=== PATIENT | female | born 2000 | race Two or more races ===

== ENCOUNTER 2025-01-04 08:11 | Outpatient (CLI) | payer MEDICAID ==
[2025-01-04 08:33] LABS: Hematocrit 37.4 % (36.0-46.0); Hemoglobin 12.7 g/dL (12.2-16.2); Mean Corpuscular Hemoglobin 29.7 pg (28.0-32.0); Mean Corpuscular Volume 87.6 fL (80.0-100.0); Nucleated Red Blood Cells % 0.0 %
== END 2025-01-04 17:00 | disposition home or self-care (01) ==
LOC: LAB 08:11
PROVIDERS: ATTEND Obstetrics & Gynecology
DX: Z34.80 Encounter for supervision of other normal pregnancy, unspecified trimester (principal); Z3A.00 Weeks of gestation of pregnancy not specified
CPT/HCPCS: 36415; 82951; 83036; 85025

== ENCOUNTER 2025-02-01 06:34 | Observation (INO) | payer MEDICAID ==
[~2025-02-01] VITALS: Ht 157.5 cm; Wt 90.7 kg
[2025-02-01] MEDS ORDERED: METF-370 PO (08:45)
[2025-02-01] MEDS ORDERED: PREN-96 PO (08:46)
--- NOTE | 2025-02-01 08:55 | DVH ---
BIOPHYSICAL PROFILE HISTORY: GDMA2 Comparison Study: None TECHNIQUE: Multiple real-time grayscale sonographic images through the gravid uterus of the fetus wi th duplex Doppler color flow and M-mode spectral analysis FINDINGS: BIOPHYSICAL PROFILE: breathing score: 2 movement score: 2 tone score: 2 Quantitative JEANA score: 2 (JEANA: 19 Cm.) Total score: 8 The cervix is not visualized Single live fetus in cephalic presentation. heart rate 135 beats per minute. Posterior/fundal placenta without previa or abruption IMPRESSION: Biophysical profile score: 8
--- NOTE | 2025-02-01 10:50 | DVHDS2 ---
Physician Discharge Progress N Final Diagnosis: testing for GDM, A2 Operations or Procedures: Operations or Procedures 24yo IUP@33.4wks VSS NST reactive FKC/PTL precautions reviewed Dr. Martin consulted, agrees with POC. Other Interventions Other Interventions [address] [address] Ph: [phone] DIAGNOSTIC IMAGING Diagnostic Imaging Report : [id number] Signed PATIENT: CARINA LLANOSACCT: [id number] UNIT: [id number] : 2000 LOC: [facility] ROOM / BED: TRIAGE1 / A AGE / SEX: 24 / F ADM STATUS: ADM IN SERVICE 4 ORDERING PHYSICIAN: MARCUS FULLER CNM PROCEDURE(s): BPP - BIOPHYSICAL PROFILE REASON: GDMA2 ORDER NUMBER(s): [id number], ACCESSION NUMBER(s): [id number] BIOPHYSICAL PROFILE HISTORY: GDMA2 Comparison Study: None TECHNIQUE: Multiple real-time grayscale sonographic images through the gravid uterus of the fetus with duplex Doppler color flow and M-mode spectral analysis FINDINGS: BIOPHYSICAL PROFILE: breathing score: 2 movement score: 2 tone score: 2 Quantitative JEANA score: 2 (JEANA: 19 Cm.) Total score: 8 The cervix is not visualized Single live fetus in cephalic presentation. heart rate 135 beats per minute. Posterior/fundal placenta without previa or abruption IMPRESSION: Biophysical profile score: 8 ATED BY: SATNAM HACKETT MD DICTATED DATE/TIME: 02/01/25852 SIGNED BY: SATNAM HACKETT MD SIGNED DATE/TIME: 02/01/25852 CC: Condition on Discharge: Stable Disposition: Home Discharge Instructions: Diet: Consistent carbohydrate Activity: No Restrictions, As Tolerated Follow Up/Referral: [facility] Friday[facility] at 8:00 am Medications: see med list Follow Up Care: Specialist: f/u twice weekly Discharge Statement: "Patient was advised to return to the ER or call 911 if any headaches, dizziness, shortness of breath, chest pain, abdominal pain, bleeding, fevers, or worsening of medical condition. Patient was counseled about treatment plan, medications, possible side effects, patientverbalized understanding. All questions were answered to the best of my ability. This discharge took greater then 30 minutes in planning, reviewing documen tation, counseling the patient, and discussing with other team members." Visit Coding OBGYN Date of Service: Feb 01, 2025 Billing Provider: MARCUS FULLER CNM TABLET TESTER Common Visit Codes: 62495-[id number] OBS CARE (HIGH) TABLET TESTER Procedure Codes: 98701-76- NON-STRESS TEST MARCUS FULLER CNM Feb 01, 2025 10:50
== END 2025-02-01 09:32 | disposition home or self-care (01) ==
LOC: LDRP 08:10 → UNDOADMOB 08:10 → LDRP 08:16 → UNDODISOB 09:32
PROVIDERS: ADMIT Obstetrics & Gynecology; ATTEND Obstetrics & Gynecology
DX: O24.419 Gestational diabetes mellitus in pregnancy, unspecified control (principal); Z3A.33 33 weeks gestation of pregnancy; Z98.890 Other specified postprocedural states; Z79.899 Other long term (current) drug therapy
CPT/HCPCS: 59025; 76819; 81002; 82948; 82962; 94760; G0378

== ENCOUNTER 2025-02-04 06:19 | Observation (INO) | payer MEDICAID ==
[~2025-02-04 06:19] MED LIST: METF-370 PO; PREN-96 PO
--- NOTE | 2025-02-04 08:57 | DVH ---
CLINICAL HISTORY: Gestational diabetes. COMPARISON: US BIOPHYSICAL PROFILE on DOS: 02/01/25 TECHNIQUE: biophysical profile was performed. Transabdominal sonographic images of the fetus we re obtained. FINDINGS: The fetus is in cephalic position. heart rate measures 140 BPM. Amniotic fluid index measures 16.4 cm. The placenta is posterior/fundal in position. BPP profile is an overall score of 8/8, with 2/2 points for breathing, with at least one episode of breathing over a 30 second duration during a 30 minute observation, 2/2 points for m ovements, with 3 or more discrete body or limb movements, 2/2 points for tone, with one or more episodes of extremity extension with return to flexion, or opening and closing of hand, and 2/ 2 points for amniotic fluid, with at least 1 pocket of amniotic fluid that measures 2 cm in 2 perpend icular planes. IMPRESSION: BPP score of 8/8.
--- NOTE | 2025-02-04 11:03 | DVHDS2 ---
Physician Discharge Progress N Final Diagnosis: GDM Operations or Procedures: Operations or Procedures NST/BPP/JEANA Commentary: Commentary PATIENT: CARINA LLANOSACCT: [id number] UNIT: [id number] : 2000 LOC: [facility] ROOM / BED: TRIAGE2 / A AGE / SEX: 24 / F ADM STATUS: ADM IN SERVICE 1 ORDERING PHYSICIAN: JORDEN SEARS DO PROCEDURE(s): BPP - BIOPHYSICAL PROFILE REASON: GDMA2 ORDER NUMBER(s): [id number], ACCESSION NUMBER(s): [id number] CLINICAL HISTORY: Gestational diabetes. COMPARISON: US BIOPHYSICAL PROFILE on DOS: 02/01/25 TECHNIQUE: biophysical profile was performed. Transabdominal sonographic images of the fetus were obtained. FINDINGS: The fetus is in cephalic position. heart rate measures 140 BPM. Amniotic fluid index measures 16.4 cm. The placenta is posterior/fundal in position. BPP profile is an overall score of 8/8, with 2/2 points for kamran thing, with at least one episode of breathing over a 30 second duration during a 30 minute observation, 2/2 points for movements, with 3 or more discrete body or limb movements, 2/2 points for tone, with one or more episodes of extremity extension with return to flexion, or opening and closing of hand, and 2/2 points for amniotic fluid, with at least 1 pocket of amniotic fluid that measures 2 cm in 2 perpendicular planes. IMPRESSION: BPP score of 8/8. ATED BY: MATEUS ARTHUR DO DICTATED DATE/TIME: 02/04/25854 Condition on Discharge: Stable Disposition: Home Discharge Instructions: Diet: Consistent carbohydrate Activity: No Restrictions, As Tolerated Follow Up/Referral: as scheduled. Medications: NA Follow Up Care: Discharge Statement: "Patient was advised to return to the ER or call 911 if any headaches, dizziness, shortness of breath, chest pain, abdominal pain, bleeding, fevers, or worsening of medical condition. Patient was counseled about treatment plan, medications, possible side effects, patientverbalized understanding. All questions were answered to the best of my ability. This discharge took greater then 30 minutes in planning, reviewing documentation, counseling the patient, and discussing with other team members." Visit Coding OBGYN Date of Service: Feb 04, 2025 Billing Provider: JORDEN SEARS DO EARLY CHILDHOOD TEACHER Common Visit Codes: [id number] INP/OBS CARE(MOD) EARLY CHILDHOOD TEACHER Procedure Codes: 72777-93- NON-STRESS TEST JORDEN SEARS DO Feb 04, 2025 11:03
== END 2025-02-04 09:32 | disposition home or self-care (01) ==
LOC: LDRP 08:15
PROVIDERS: ADMIT Obstetrics & Gynecology; ATTEND Obstetrics & Gynecology
DX: O24.419 Gestational diabetes mellitus in pregnancy, unspecified control (principal); Z3A.34 34 weeks gestation of pregnancy; Z98.890 Other specified postprocedural states
CPT/HCPCS: 59025; 76819; 81002; 82948; 82962; 94760; G0378

== ENCOUNTER 2025-02-08 11:35 | Observation (INO) | payer MEDICAID ==
--- NOTE | 2025-02-08 12:18 | DVH ---
BIOPHYSICAL PROFILE HISTORY: GDMA2 TECHNIQUE: Multiple real-time grayscale sonographic images through the gravid uterus of the fetus wi th duplex Doppler color flow. FINDINGS: BIOPHYSICAL PROFILE: breathing score: 2 movement score: 2 tone score: 2 Quantitative JEANA score: 2 Total score: 8 out of 8 Single live intrauterine . Cephalic lie. Placenta posteriorly/ fundally positioned. JEANA 2 1 cm. heart rate 138 beats per minute. IMPRESSION: Biophysical profile score: 8 out of 8
--- NOTE | 2025-02-08 17:55 | DVHDS2 ---
Physician Discharge Progress N Final Diagnosis: testing for GDM, A2 Operations or Procedures: Operations or Procedures 24yo IUP@34.3wks VSS NST reactive per RN FKC/PTL/preE precautions reviewed Dr. Martin consulted, agrees with POC. Other Interventions Other Interventions [address] [address] Ph: [phone] DIAGNOSTIC IMAGING Diagnostic Imaging Report : [id number] Signed PATIENT: CARINA LLANOSACCT: [id number] UNIT: [id number] : 2000 LOC: [facility] ROOM / BED: TRIAGE3 / A AGE / SEX: 24 / F ADM STATUS: ADM IN SERVICE 37 ORDERING PHYSICIAN: MARCUS FULLER CNM PROCEDURE(s): BPP - BIOPHYSICAL PROFILE REASON: GDMA2 ORDER NUMBER(s): [id number], ACCESSION NUMBER(s): [id number] BIOPHYSICAL PROFILE HISTORY: GDMA2 TECHNIQUE: Multiple real-time grayscale sonographic images through the gravid uterus of the fetus with duplex Doppler color flow. FINDINGS: BIOPHYSICAL PROFILE: breathing score: 2 movement score: 2 tone score: 2 Quantitative JEANA score: 2 Total score: 8 out of 8 Single live intrauterine . Cephalic lie. Placenta posteriorly/ fundally positioned. JEANA 21 cm. heart rate 138 beats per minute. IMPRESSION: Biophysical profile score: 8 out of 8 ATED BY: RUBEN SANTOS MD DICTATED DATE/TIME: 02/08/251219 SIGNED BY: RUBEN SANTOS MD SIGNED DATE/TIME: 02/08/251219 CC: Condition on Discharge: Stable Disposition: Home Discharge Instructions: Diet: Consistent carbohydrate Activity: No Restrictions, As Tolerated Medications: see med list Follow Up Care: Specialist: f/u in 3 days Discharge Statement: "Patient was advised to return to the ER or call 911 if any headaches, dizziness, shortness of breath, chest pain, abdominal pain, bleeding, fevers, or worsening of medical condition. Patient was counseled about treatment plan, medications, possible side effects, patientverbalized understanding. All questions were answered to the best of my ability. This discharge took greater then 30 minutes in planning, reviewing documentation, counseling the patient, and discussing with other team members." Visit Coding OBGYN Date of Service: Feb 08, 2025 Billing Provider: MARCUS FULLER CNM MIXED CROP FARMER Common Visit Codes: 84894-[id number] OBS CARE (HIGH) MIXED CROP FARMER Procedure Codes: 90096-43- NON-STRESS TEST MARCUS FULLER CNM Feb 08, 2025 17:55
== END 2025-02-08 12:48 | disposition home or self-care (01) ==
LOC: LDRP 11:35 → UNDOADMOB 11:35 → LDRP 11:39 → UNDODISOB 12:48
PROVIDERS: ADMIT Obstetrics & Gynecology; ATTEND Obstetrics & Gynecology
DX: O24.419 Gestational diabetes mellitus in pregnancy, unspecified control (principal); Z3A.34 34 weeks gestation of pregnancy; Z98.890 Other specified postprocedural states
CPT/HCPCS: 59025; 76819; 81002; 82948; 82962; 94760; G0378

== ENCOUNTER 2025-02-11 11:41 | Observation (INO) | payer MEDICAID ==
[~2025-02-11] VITALS: Ht 160 cm; Wt 89.8 kg
--- NOTE | 2025-02-11 16:01 | DVH ---
BIOPHYSICAL PROFILE HISTORY: GDMA2 TECHNIQUE: Multiple transabdominal real-time grayscale sonographic images through the gravid uterus of the fetus with duplex Doppler color flow and M-mode spectral analysis FINDINGS: BIOPHYSICAL PROFILE: breathing score: 2 movement score: 2 tone score: 2 Quantitative JEANA score: 2 (JEANA: 18.7 Cm.) Total score: 8/8 The cervix obscured at this time Single live fetus in cephalic presentation. heart rate 130 beats per minute. Posterior/ fundal Grade 2 placenta without previa or abruption venous Garrison measures 2 x 1.6 x 1.8 cm. Single live fetus at 35 weeks 0 days Biophysical profile score 8/8 corresponding to an NAM of 03/18/2025. IMPRESSION: 1. Biophysical profile score: 8/8 2. FHR: 130 beats per minute. 3. Prominent venous garrison measuring 2 x 1.6 x 1.8 cm 4. No other measurements given.
--- NOTE | 2025-02-14 12:14 | DVHDS2 ---
Physician Discharge Progress N Final Diagnosis: gdm 35wks Operations or Procedures: Operations or Procedures nst reactive reviwed,sono Condition on Discharge: Good Disposition: Home Discharge Instructions: Diet: Consistent carbohydrate Activity: No Restrictions, As Tolerated Medications: na Follow Up Care: Specialist: 4d Discharge Statement: "Patient was advised to return to the ER or call 911 if any headaches, dizziness, shortness of breath, chest pain, abdominal pain, bleeding, fevers, or worsening of medical condition. Patient was counseled about treatment plan, medications, possible side effects, patientverbalized understanding. All questions were answered to the best of my ability. This discharge took greater then 30 minutes in planning, reviewing documentation, counseling the patient, and discussing with other team members." Visit Coding OBGYN Date of Service: Feb 11, 2025 Billing Provider: MERCED MEZA DO HAT BLOCKING MACHINE OPERATOR Common Visit Codes: 05672-[id number] OBS CARE (HIGH) HAT BLOCKING MACHINE OPERATOR Procedure Codes: 11720-11- NON-STRESS TEST MERCED MEZA DO Feb 14, 2025 12:14
[2025-02-14] MEDS ORDERED: METF-370 PO (14:01)
[2025-02-14] MEDS ORDERED: PREN1TAB71 OR (14:01)
== END 2025-02-11 16:15 | disposition home or self-care (01) ==
LOC: LDRP 15:00
PROVIDERS: ADMIT Obstetrics & Gynecology; ATTEND Obstetrics & Gynecology
DX: O24.419 Gestational diabetes mellitus in pregnancy, unspecified control (principal); Z3A.35 35 weeks gestation of pregnancy; Z98.890 Other specified postprocedural states
CPT/HCPCS: 59025; 76819; 81002; 82948; 82962; 94760; G0378

== ENCOUNTER 2025-02-14 12:45 | Observation (INO) | payer MEDICAID ==
--- NOTE | 2025-02-14 13:39 | DVH ---
BIOPHYSICAL PROFILE HISTORY: GDMA2 TECHNIQUE: Multiple transabdominal real-time grayscale sonographic images through the gravid uterus of the fetus with duplex Doppler color flow and M-mode spectral analysis FINDINGS: BIOPHYSICAL PROFILE: breathing score: 2 movement score: 2 tone score: 2 Quantitative JEANA score: 2 (JEANA: 17.3 Cm.) Total score: 8 The cervix was not seen Single live fetus in vertex presentation. heart rate 137 beats per minute. Grade II posterior placenta without previa or abruption IMPRESSION: Biophysical profile score: 8/8
[2025-02-14] MEDS ORDERED: PREN1TAB71 OR ×2 (14:01)
[2025-02-14] MEDS ORDERED: METF-370 PO ×2 (14:01)
--- NOTE | 2025-02-14 14:51 | DVHDS2 ---
Discharge Summary Date of Admission Feb 14, 2025 at 12:45 Date of Discharge: Feb 14, 2025 Admitting Diagnosis Thirty-five week 2/7 GDM A2 here for scheduled NST JEANA Wounds: None Labs/Diagnostic Data: Laboratory Results Test 02/14/25 13:35 POC Glucose 96 mg/dl (70-106) Brief Hx & Hospital Course: NST JEANA BPP all reassuring performed. Consults/Reason for consult None Operations or Procedures NST BPP Condition at Discharge: Good Final Diagnosis/Problems List 35+ week GDM A2 reassuring Discharge Disposition: Home Discharge Instruct/Medications Diet: Consistent carbohydrate Activity: No Restrictions, As Tolerated (Pelvic rest) Follow Up/Referral: As scheduled for routine NST BPP Scheduled Metformin Hydrochloride (Metformin Hcl), 500 MG PO DAILY, (Reported) Miscellaneous Medications Vit W/ Ferrous Fumara (Pnv Plus Multivi), 1 OR, (Reported) Discontinued Medications Metformin Hydrochloride (Metformin Hcl), 500 MG PO DAILY, (Reported) Vit W/ Ferrous Fumara ( One Daily), 1 TAB PO DAILY, (Reported) Discharge Statement: "Patient was advised to return to the ER or call 911 if any headaches, dizziness, shortness of breath, chest pain, abdominal pain, bleeding, fevers, or worsening of medical condition. Patient was counseled about treatment plan, medications, possible side effects, patientverbalized understanding. All questions were answered to the best of my ability. This discharge took greater then 30 minutes in planning, reviewing documentation, counseling the patient, and discussing with other team members." ASSESSMENT ASSESSMENT Hospital Course Outpatient NST BPP Assessment 35-3/7 GDM A2 reassuring Visit Coding OBGYN Date of Service: Feb 14, 2025 Billing Provider: STEVE NARAYANAN DO ADMINISTRATIVE STAFF SUPERVISOR Common Visit Codes: 22399-SWI/OBS SAME DATE (LOW), 35159-ZLZ/OBS SAME DATE (MOD), 47138-RYO/OBS SAME DATE (HIGH) ADMINISTRATIVE STAFF SUPERVISOR Procedure Codes: 68240-21- NON-STRESS TEST STEVE NARAYANAN DO Feb 14, 2025 14:51
== END 2025-02-14 14:16 | disposition home or self-care (01) ==
LOC: LDRP 12:45
PROVIDERS: ADMIT Obstetrics & Gynecology; ATTEND Obstetrics & Gynecology
DX: O24.419 Gestational diabetes mellitus in pregnancy, unspecified control (principal); Z3A.35 35 weeks gestation of pregnancy; Z98.890 Other specified postprocedural states
CPT/HCPCS: 59025; 76819; 81002; 82948; 82962; G0378

== ENCOUNTER → 2025-02-14 | Outpatient (CLI) | payer MEDICAID ==
[~2025-02-14] MED LIST changes: -PREN-96 PO; +PREN1TAB71 OR
[2025-02-14 15:39] LABS: Hematocrit 38.0 % (36.0-46.0); Hemoglobin 13.1 g/dL (12.2-16.2); Mean Corpuscular Hemoglobin 29.6 pg (28.0-32.0); Mean Corpuscular Volume 86.2 fL (80.0-100.0); Nucleated Red Blood Cells % 0.0 %
[2025-02-16 06:07] LABS: Chlamydia Trachomatis, NAA Negative (Negative); Neisseria gonorrhoeae, NAA Negative (Negative)
== END | disposition home or self-care (01) ==
LOC: LAB 15:11
DX: Z34.80 Encounter for supervision of other normal pregnancy, unspecified trimester (principal); Z3A.00 Weeks of gestation of pregnancy not specified
CPT/HCPCS: 36415; 85025; 86780

== ENCOUNTER 2025-02-16 05:00 | Observation (INO) | payer MEDICAID ==
--- NOTE | 2025-02-16 12:00 | DVH ---
BIOPHYSICAL PROFILE HISTORY: GDMA2 TECHNIQUE: Multiple transabdominal real-time grayscale sonographic images through the gravid uterus of the fetus with duplex Doppler color flow and M-mode spectral analysis FINDINGS: BIOPHYSICAL PROFILE: breathing score: 2 movement score: 2 tone score: 2 Quantitative JEANA score: 2 (JEANA: 12.7 Cm.) Total score: 8 The cervix not well visualized. Single live fetus in cephalic presentation. heart rate 130 beats per minute. Posterior placenta without previa or abruption IMPRESSION: Biophysical profile score: 8
--- NOTE | 2025-02-16 13:21 | DVHDS2 ---
Physician Discharge Progress N Final Diagnosis: gdm 35wks Operations or Procedures: Operations or Procedures nst reactive reviwed,sono Condition on Discharge: Good Disposition: Home Discharge Instructions: Diet: Consistent carbohydrate Activity: Light activity Medications: na Follow Up Care: Specialist: 3d Discharge Statement: "Patient was advised to return to the ER or call 911 if any headaches, dizziness, shortness of breath, chest pain, abdominal pain, bleeding, fevers, or worsening of medical condition. Patient was counseled about treatment plan, medications, possible side effects, patientverbalized understanding. All questions were answered to the best of my ability. This discharge took greater then 30 minutes in planning, reviewing documenta tion, counseling the patient, and discussing with other team members." Visit Coding OBGYN Date of Service: Feb 16, 2025 Billing Provider: MERCED MEZA DO FORESTER AIDE Common Visit Codes: 53557-DESOPUR OBS CARE (HIGH) FORESTER AIDE Procedure Codes: 73211-02- NON-STRESS TEST MERCED MEZA DO Feb 16, 2025 13:21
== END 2025-02-16 14:42 | disposition home or self-care (01) ==
LOC: LDRP 11:08 → UNDOADMOB 11:08 → LDRP 11:16
PROVIDERS: ADMIT Obstetrics & Gynecology; ATTEND Obstetrics & Gynecology
DX: O24.419 Gestational diabetes mellitus in pregnancy, unspecified control (principal); Z3A.35 35 weeks gestation of pregnancy; Z98.890 Other specified postprocedural states
CPT/HCPCS: 59025; 76819; 81002; 82948; 82962; 94760; G0378

== ENCOUNTER 2025-02-18 05:17 | Observation (INO) | payer MEDICAID ==
[2025-02-21] MEDS ORDERED: INSU1INJ19 SC (09:22)
--- NOTE | 2025-02-24 13:13 | DVH ---
BIOPHYSICAL PROFILE HISTORY: GDMA2 TECHNIQUE: Multiple transabdominal real-time grayscale sonographic images through the gravid uterus of the fetus with duplex Doppler color flow and M-mode spectral analysis FINDINGS: BIOPHYSICAL PROFILE: breathing score: 2 movement score: 2 tone score: 2 Quantitative JEANA score: 2 (JEANA: 15.4 Cm, MVP: 5.1 cm.) Total score: 8/8 The cervix obscured by head Single live fetus in cephalic presentation. heart rate 131 beats per minute. Fundal Grade 2 placenta without previa or abruption Single live fetus at 36 weeks 6 day Biophysical profile score 8/8 corresponding to an NAM of 03/18/2025 IMPRESSION: 1. Biophysical profile score: 8/8
--- NOTE | 2025-02-25 11:41 | DVHDS2 ---
Physician Discharge Progress N Final Diagnosis: gdma2 36wks Operations or Procedures: Operations or Procedures nst reviwed reactive ,sono Condition on Discharge: Good Disposition: Home Discharge Instructions: Diet: Regular, Consistent carbohydrate Activity: No Restrictions, As Tolerated Medications: na Follow Up Care: Specialist: fu in 3days Discharge Statement: "Patient was advised to return to the ER or call 911 if any headaches, dizziness, shortness of breath, chest pain, abdominal pain, bleeding, fevers, or worsening of medical condition. Patient was counseled about treatment plan, medications, possible side effects, patientverbalized understanding. All questions were answered to the best of my ability. This discharge took greater then 30 minutes in planning, reviewing documentation, counseling the patient, and discussing with other team members." Visit Coding OBGYN Date of Service: Feb 24, 2025 Billing Provider: MERCED MEZA DO PAD EXTRACTION TENDER Common Visit Codes: 40680-DRQPWNR INP/OBS CARE (HIGH) PAD EXTRACTION TENDER Procedure Codes: 92879-84- NON-STRESS TEST MERCED MEZA DO Feb 25, 2025 08:54
== END 2025-02-24 13:23 | disposition home or self-care (01) ==
LOC: LDRP 02-24 12:03
PROVIDERS: ADMIT Obstetrics & Gynecology; ATTEND Obstetrics & Gynecology
DX: O24.419 Gestational diabetes mellitus in pregnancy, unspecified control (principal); Z3A.36 36 weeks gestation of pregnancy; Z79.899 Other long term (current) drug therapy; Z98.890 Other specified postprocedural states
CPT/HCPCS: 59025; 76819; 81002; 82948; 82962; 94760; G0378

== ENCOUNTER 2025-02-21 08:09 | Observation (INO) | payer MEDICAID ==
--- NOTE | 2025-02-21 09:16 | DVH ---
BIOPHYSICAL PROFILE HISTORY: gdma2 TECHNIQUE: Multiple transabdominal real-time grayscale sonographic images through the gravid uterus of the fetus with duplex Doppler color flow and M-mode spectral analysis FINDINGS: BIOPHYSICAL PROFILE: breathing score: 2 movement score: 2 tone score: 2 Quantitative JEANA score: 2 (JEANA: 17.5 Cm.) Total score: 8 The cervix was not seen Single live fetus in cephlic presentation. heart rate 134 beats per minute. Grade II fundal placenta without previa or abruption IMPRESSION: Biophysical profile score: 8/8
[2025-02-21] MEDS ORDERED: INSU1INJ19 SC (09:22)
--- NOTE | 2025-02-21 19:48 | DVHDS2 ---
Discharge Summary Date of Admission Feb 21, 2025 at 08:16 Date of Discharge: Feb 21, 2025 Admitting Diagnosis Thirty-six weeks GDM A2 here for routine monitoring NST BPP performed reassuring Wounds: None Labs/Diagnostic Data: Laboratory Results Test 02/21/25 08:39 POC Glucose 91 mg/dl (70-106) Brief Hx & Hospital Course: 36 week or here for routine GDM A2 NST BPP monitoring both reassuring Consults/Reason for consult GDM A2 Operations or Procedures BPP NST Condition at Discharge: Good Final Diagnosis/Problems List 36+ weeks GDM A2 reassuring Discharge Disposition: Home Discharge Instruct/Medications Diet: Consistent carbohydrate Activity: Pelvic rest Activity comment: Kick counts labor precautions carbohydrate precautions Follow Up/Referral: Routine as scheduled weekly. Scheduled Metformin Hydrochloride (Metformin Hcl), 500 MG PO DAILY, (Reported) Miscellaneous Medications Insulin Glargine (Basaglar Kwikpen), 100 UNIT SC, (Reported) Vit W/ Ferrous Fumara (Pnv Plus Multivi), 1 OR, (Reported) Discharge Statement: "Patient was advised to return to the ER or call 911 if any headaches, dizziness, shortness of breath, chest pain, abdominal pain, bleeding, fevers, or worsening of medical condition. Patient was counseled about treatment plan, medications, possible side effects, patientverbalized understanding. All questions were answered to the best of my ability. This discharge took greater then 30 minutes in planning, reviewing documentation, counseling the patient, and discussing with other team members." ASSESSMENT ASSESSMENT Assessment Visit Coding OBGYN Date of Service: Feb 21, 2025 Billing Provider: STEVE NARAYANAN DO CRIMINAL DEFENSE LAWYER Common Visit Codes: 71630-SEY/OBS SAME DATE (LOW), 43827-DSL/OBS SAME DATE (MOD), 01389-SAV/OBS SAME DATE (HIGH) CRIMINAL DEFENSE LAWYER Procedure Codes: 28243-16- NON-STRESS TEST STEVE NARAYANAN DO Feb 21, 2025 19:48
== END 2025-02-21 09:32 | disposition home or self-care (01) ==
LOC: UNDOADMOB 08:09 → LDRP 08:09 → UNDODISOB 09:32
PROVIDERS: ADMIT Obstetrics & Gynecology; ATTEND Obstetrics & Gynecology
DX: O24.419 Gestational diabetes mellitus in pregnancy, unspecified control (principal); Z3A.36 36 weeks gestation of pregnancy; Z98.890 Other specified postprocedural states
CPT/HCPCS: 59025; 76819; 81002; 82948; 82962; 94760; G0378

== ENCOUNTER 2025-02-27 19:07 | Inpatient (IN) | payer MEDICAID ==
[~2025-02-27] VITALS: Ht 160 cm; Wt 90.3 kg
[~2025-02-27 19:07] MED LIST changes: +INSU1INJ19 SC
--- NOTE | 2025-02-27 19:53 | DVHHP2 ---
OB CC & HPI Date Date of Admission: Feb 27, 2025 Patient Identification: : 2 Para: 0 EGA: 37.2 Chief Complaints: Reason for admission: rupture of membranes History of Present Complaints leaking of fluid, clear Grossly has ruptured membranes PNL care w/ Dr Martin. Complicated by GDMA2 on Metformin/Insulin GBS results not known. Past Medical History Cardiac: No pertinent Hx Pulmonary: No pertinent Hx Central Nervous System: No pertinent Hx GI: No pertinent Hx Hemotology/Oncology: No pertinent Hx Hepatobiliary: No pertinent Hx Psychiatric: No pertinent Hx Musculoskeletal: No pertinent Hx Rheumotologic: No pertinent Hx Infectious Disease: No peritnent Hx ENT: No pertinent Hx Renal/: No pertinent Hx Endocrine: No pertinent Hx Dermatology: No pertinent Hx Past Surgical History: No pertinent Hx OB History OB History Care: Good Care Ultrasounds: Normal mid trimester US Obstetrical Complications: Gestational Diabetes Allergies: Coded Allergies: NO KNOWN ALLERGIES (Unverified , 02/01/25) Home Meds Reported Medications Insulin Glargine (Basaglar Kwikpen) 100 Unit/Ml Inj, 100 UNIT SC, INJ 02/21/25 Metformin Hydrochloride (Metformin Hcl) 500 Mg Tab, 500 MG PO DAILY for 30 Days, MG 02/14/25 Vit W/ Ferrous Fumara (PNV PLUS MULTIVI) Plus Tab, 1 OR, TAB 02/14/25 Family & Social History Family/Social History GBS Status: Unknown Review of Systems Constitutional: No symptom reported Ears, Nose, & Throat: No symptom reported Eyes: No symptom reported Pulmonary/Respiratory: No symptom reported Cardiovascular: No symptom reported Gastrointestinal: No symptom reported Genitourinary: No symptom reported Musculoskeletal: No symptom reported Skin: No symptom reported Psychiatric: No symptom reported Endocrine: No symptom reported Hemotologic/Lymphatic: No symptom reported OB Admission Exam Physical Exam HEENT: NCAT Heart: Rhythm Normal Lungs: Clear Abdomen: Gravid Extremities: Normal Reflexes: Normal Membranes: Ruptured Amniotic Fluid: Clear Heart Rate: 140's Accelerations: Accelerations Present Decelerations: No Decelerations Short Term Variability: Present [employer] Wafers Marker Variability: Average (6-25) Contractions on Admission: >10 Minutes Apart Intensity: Mild OB Plan Plan Admitting Diagnosis: Early Term , 37+ wk with PROM GDMA2 GBS unknown Categ 1 tracing Plan: Induction Induction Methd: Misoprostol protocol Other Plan: Admit for delivery OB US for EFW/presentation/ JEANA ordered Aleida for GBS prophylaxis ordered Accucheck q2h in active labor, sliding scale insulin as needed for BS > 125 - Intrapartum BS goal 70-125 mg/dL Visit Coding OBGYN Date of Service: Feb 27, 2025 Billing Provider: JORDEN SEARS DO LAYBOY TENDER Common Visit Codes: 53282-GQIWTKF INP/OBS CARE (HIGH) JORDEN SEARS DO Feb 27, 2025 19:53
[2025-02-27 20:05] LABS: Hematocrit 38.0 % (36.0-46.0); Hemoglobin 12.9 g/dL (12.2-16.2); Mean Corpuscular Hemoglobin 29.3 pg (28.0-32.0); Mean Corpuscular Volume 86.2 fL (80.0-100.0); Nucleated Red Blood Cells % 0.0 %
[2025-02-27 20:17] LABS: Amphetamine Screen, Urine Neg (NEGATIVE); Barbiturate Scree,Urine Neg (NEGATIVE); Benzodiazephine Screen, Urine Neg (NEGATIVE); Cannabinoid Screen, Urine Neg (NEGATIVE); Cocaine Screen, Urine Neg (NEGATIVE); Opiate Scree,Urine Neg (NEGATIVE); Phencyclidine Screen, Urine Neg (NEGATIVE)
[2025-02-27 20:18] LABS: Urine Protein, UAD Negative (Negative)
[2025-02-27 20:18] LABS: Albumin 3.9 g/dL (3.2-4.8); Anion Gap 11 (5-15); BUN/Creatinine Ratio 16.9 (10.0-20.0); Blood Urea Nitrogen 11 mg/dL (9-23); Calcium 9.2 mg/dL (8.7-10.4); Carbon Dioxide 21 mmol/L (20-31); Glucose 92 mg/dL (74-106); INR 0.94 (0.9-1.15); Partial Thromboplastin Time 25.9 SEC (24.5-34.5); Potassium 3.5 mmol/L (3.5-5.1); Prothrombin Time 10.0 sec (9.3-11.8); Sodium 141 mmol/L (136-145); Total Protein 6.7 g/dL (5.7-8.2)
[2025-02-27 20:19] LABS: Bilirubin, Total 0.3 mg/dL (0.2-1.0)
[2025-02-27 20:20] LABS: Alanine Aminotransferase 77 U/L (7-40); Alkaline Phosphatase 147 U/L (46-116); Chloride 109 mmol/L (98-107)
--- NOTE | 2025-02-27 20:41 | DVH ---
LIMITED OB ULTRASOUND > 14 WKS: HISTORY: GDMA2 TECHNIQUE: Multiple real-time grayscale images of the gravid uterus with duplex Doppler color flow an d M-mode spectral analysis. TRANSDUCER: Transabdominal FINDINGS: IUP single live fetus at 37 weeks 4 days plus or minus 2 weeks 4 based on composite averages of the B PD, head circumference, abdominal circumference and femur length Estimated weight 3176 g plus or minus 476.4 g ; 7 lb 0 oz +/-1 lb 1 oz heart rate 155 beats per minute JEANA 12.16 cm Cervix not visualized. Cephalic Presentation Fundal Grade 2-3 Placenta without previa or abruption. BPD: 9.37 cm: 38 weeks 1 day ; 86% range 35 weeks 0 days -41 weeks 2 day HC: 33.16; 37 weeks 6 days consistent with 37.5% range 35 weeks 1 day 40 weeks 4 days AC: 33.14 cm consistent with 37 weeks 0 days consistent with a 0.4% 34 weeks 0 days 40 weeks 1 days. FL: 7.28 cm 37 weeks 2 days ; 49.4% ; range 34 weeks 1 day-40 weeks 3 days. CI: 81.91 70.11 -86.00 FL/BPD: 77.69 range 71.0-87.0 HC/AC: 1.0 range 0.91-1.05 FL/AC: 21.97 range 20.00-24.00 FL/HC: 21.95 range 20.86-22.66 IMPRESSION: 1. IUP single live fetus at 37 weeks 4 days plus or minus 2 weeks 4 days AUA corresponding to an NAM of 03/16/2025. 2. FHR: 155bpm
[2025-02-27] MEDS ORDERED: DEXTROSE (50%) 50ML SYRG IV PRN (21:00)
[2025-02-27] MEDS: PENICILLIN G POT 5MIL/D5 50ML 50 ML IV ONE (21:00)
[2025-02-27] MEDS ORDERED: ACCU-CHEK COMFORT CURVE STRIP VI SCH (22:00)
[2025-02-27] MEDS: WITCH HAZEL-GLYCERIN PAD TOP PRN (22:18)
[2025-02-27] MEDS: DERMOPLAST 60ML BOTTLE TOP PRN (22:18)
[2025-02-27] MEDS: PHISODERM TOP SOLN 240ML BTL TOP PRN (22:19)
[2025-02-27] MEDS: LACTATED RINGER'S 1,000 ML IV SCH (22:20)
[2025-02-28] MEDS ORDERED: ACCU-CHEK COMFORT CURVE STRIP VI SCH
[2025-02-28] MEDS ORDERED: InsuLIN REG 1unit/0.01ml Soln (100units/ml) SC SCH
[2025-02-28] MEDS: PENICILLIN G POTASSIUM 2,500,000 UNITS in D5W 5% 50 ML IV SCH (01:24)
--- NOTE | 2025-02-28 02:18 | DVHPN2 ---
OB Labor Progress Note Date and Time Seen Date Seen: Feb 28, 2025 Time Seen: 02:15 Subjective Patient reports: No new complaints Objective Vital Signs Afeb VS Stable Monitoring Method Monitoring Method: External Heart Rate Heart Rate Baseline: 140 Heart Rate Variability: Moderate Presence of FHR Accelerations: Yes Presence of FHR Decelerations: No Contractions Contractions Frequency: Other (3 in 10 mins) Contractions Intensity: Moderate Contractions Resting Tone: Relaxed Membranes Membranes: Ruptured Amniotic Fluid Color: Clear Vaginal Exam Vag Exam Deferred: No Vaginal Exam Dilation: 2 Vaginal Exam Effacement: 60 Vaginal Exam Station: -3 Vaginal Exam Presentation: VTX Vaginal Exam Show: None Medications Medications - Pitocin: No Lab Results Lab Results Current Medications Medications (Trade) Dose Ordered Sig/Noelle Start Time Stop Time Status Last Admin Dose Admin Lactated Ringer's 1,000 ml @ 125 mls/hr Q8H 02/27/25 19:30 02/27/25 22:20 125 MLS/HR Nalbuphine HCl (Nubain) 10 mg Q4HP PRN 02/27/25 19:30 Penicillin G Potassium 50 ml @ 100 mls/hr ONCE ONCE 02/27/25 19:30 02/27/25 20:23 DC 02/27/25 21:00 100 MLS/HR Penicillin G Potassium [id number] units/Dextrose 50 ml @ 100 mls/hr Q4H 02/27/25 23:30 02/28/25 01:24 100 MLS/HR Diagnostic Test (Pha) (Accu-Chek Comfort Curve T) 1 strip Q4HR 02/27/25 22:00 02/27/25 21:08 DC Florinda Mckeon (Tucks) 1 pad PRN PRN 02/27/25 19:30 02/27/25 22:18 1 PAD Sodium Lauryl Sulfate (Phisoderm) 240 ml PRN PRN 02/27/25 19:30 02/27/25 22:19 240 ML Benzocaine (Dermoplast) 1 applic PRN PRN 02/27/25 19:30 02/27/25 22:18 1 APPLIC Lidocaine HCl (Xylocaine) 40 ml ONCE PRN 02/27/25 19:30 Oxytocin 500 ml @ 999 mls/hr Q31M ONCE 02/27/25 19:45 02/27/25 20:21 DC Oxytocin 500 ml @ 125 mls/hr Q4H ONCE 02/27/25 20:15 02/28/25 00:14 DC Misoprostol (Cytotec) 50 mcg Q4HPRN PRN 02/27/25 21:00 02/28/25 01:32 50 MCG Diagnostic Test (Pha) (Accu-Chek Comfort Curve T) 1 strip IQ4HR 02/28/25 00:00 Insulin Human Regular (InsuLIN R) IQ4HR 02/28/25 00:00 Dextrose 50 ml UD PRN 02/27/25 21:00 Laboratory Tests Test 02/27/25 20:04 02/27/25 19:43 02/27/25 19:07 Range/Units POC Glucose 107 H 70-106 mg/dl White Blood Count 5.5 4.4-10.8 10^3/uL Red Blood Count 4.41 4.0-5.20 10^6/uL Hemoglobin 12.9 12.2-16.2 g/dL Hematocrit 38.0 36.0-46.0 % Mean Corpuscular Volume 86.2 80.0-100.0 fL Mean Corpuscular Hemoglobin 29.3 28.0-32.0 pg Mean Corpuscular Hemoglobin Concent 34.0 32.0-36.0 g/dL Red Cell Distribution Width 15.2 H 11.8-14.3 % Platelet Count 232 140-450 10^3/uL Mean Platelet Volume 9.1 6.9-10.8 fL Neutrophils (%) (Auto) 68.0 37.0-80.0 % Lymphocytes (%) (Auto) 23.4 10.0-50.0 % Monocytes (%) (Auto) 7.7 0.0-12.0 % Eosinophils (%) (Auto) 0.6 0.0-7.0 % Basophils (%) (Auto) 0.3 0.0-2.0 % Neutrophils # (Auto) 3.7 1.6-8.6 10 ^3/uL Lymphocytes # (Auto) 1.3 0.4-5.4 10 ^3/uL Monocytes # (Auto) 0.4 0-1.3 10 ^3/uL Eosinophils # (Auto) 0 0-0.8 10 ^3/uL Basophils # (Auto) 0 0-0.2 10 ^3/uL Nucleated Red Blood Cells 0.0 % Prothrombin Time 10.0 9.3-11.8 sec Prothrombin Time INR 0.94 0.9-1.15 Activated Partial Thromboplast Time 25.9 24.5-34.5 SEC Sodium Level 141 136-145 mmol/L Potassium Level 3.5 3.5-5.1 mmol/L Chloride Level 109 H 98-107 mmol/L Carbon Dioxide Level 21 20-31 mmol/L Anion Gap 11 5-15 Blood Urea Nitrogen 11 9-23 mg/dL Creatinine 0.65 0.550-1.02 mg/dL Glomerular Filtration Rate Calc 126 >90 mL/min BUN/Creatinine Ratio 16.9 10.0-20.0 Serum Glucose 92 74-106 mg/dL Calcium Level 9.2 8.7-10.4 mg/dL Total Bilirubin 0.3 0.2-1.0 mg/dL Aspartate Amino Transferase (AST) 40 13-40 U/L Alanine Aminotransferase (ALT) 77 H 7-40 U/L Alkaline Phosphatase 147 H 46-116 U/L Total Protein 6.7 5.7-8.2 g/dL Albumin 3.9 3.2-4.8 g/dL Treponema pallidum Antibody Pending Hepatitis C Antibody Negative Negative Urine Color Colorless Yellow Urine Clarity Clear Clear Urine pH 6.0 5.0-9.0 Urine Specific [place] 1.009 1.001-1.035 Urine Protein Negative Negative Urine Ketones Trace Negative Urine Blood Negative Negative /uL Urine Nitrite Negative Negative Urine Bilirubin Negative Negative Urine Urobilinogen Normal Negative mg/dL Urine Leukocyte Esterase Negative Negative /uL Urine RBC None seen 0 - 4 /hpf Urine Microscopic WBC < 1 0-5 /HPF Urine Squamous Epithelial Cells Few <5 /hpf Urine Bacteria Few H None Seen /hpf Urine Glucose Normal Normal mg/dL Urine Opiates Screen Neg NEGATIVE Urine Fentanyl Screen Neg NEGATIVE Urine Barbiturates Screen Neg NEGATIVE Urine Phencyclidine Screen Neg NEGATIVE Urine Amphetamines Screen Neg NEGATIVE Urine Benzodiazepines Screen Neg NEGATIVE Urine Cocaine Screen Neg NEGATIVE Urine Cannabinoids Screen Neg NEGATIVE Assessment Assessment Early term IUP 37.3 wk, PROM GBS unknown status Categ 1 FHR tracing Plan Plan Continue Induction of labor, Cytotec orally x 2 doses given Will start Pitocin once more favorable cervical exam, as needed continue Pen G for GBS prophylaxis Plan discussed with: Patient Visit Coding OBGYN Date of Service: Feb 28, 2025 Billing Provider: JORDEN SEARS DO WOOD CASKET ASSEMBLER Common Visit Codes: [id number] INP/OBS CARE(HIGH) JORDEN SEARS DO Feb 28, 2025 02:18
[2025-02-28] MEDS: NALOXONE HCL 0.4 MG/ML VIAL IV ONE (05:30)
[2025-02-28] MEDS ORDERED: LIDOCAINE HCL 2 %PF INJ 10ML AMP IJ ONE (05:30)
[2025-02-28] MEDS: LIDOCAINE HCL 2 %PF INJ 10ML AMP IJ ONE (05:30)
[2025-02-28] MEDS: LACTATED RINGER'S 500 ML IV ONE (05:36)
[2025-02-28] MEDS: PENICILLIN G POT 5MILLION UNIT VIAL ONE (06:09)
[2025-02-28] MEDS: STERILE WATER 10 ML ONE (06:19)
[2025-02-28] MEDS: ROPIVACAINE HCL 100 ML ONE ×2 (06:34→16:17)
[2025-02-28] MEDS: fentaNYL CITRATE 100 MCG/2 ML VL IV ONE (06:35)
[2025-02-28] MEDS ORDERED: ceFAZolin 2 GM/D5W50ml 50 ML IV SCH (07:30)
[2025-02-28] MEDS: ceFAZolin 2 GM/D5W50ml 50 ML IV SCH (07:35)
[2025-02-28] MEDS: LACT. RINGERS/OXYTOCIN 20UNITS 1,000 ML IV SCH (09:09)
[2025-02-28] MEDS: ceFAZolin 1GM/50ML 50 ML IV SCH (15:31)
[2025-02-28] MEDS: LACT. RINGERS/OXYTOCIN 20UNITS 500 ML IV ONE ×2 (19:32)
[2025-02-28] MEDS: METHYLERGONOVINE MALEATE 0.2 MG/ML AMP IM ONE (19:35)
[2025-02-28] MEDS: LIDOCAINE 2%HCL (LOCAL ANESTH.) INJ 20ML MDV IJ PRN (19:58)
[2025-02-28] MEDS: TERBUTALINE SULFATE 1 MG/ML 1ML VIAL SC PRN (19:59)
[2025-02-28] MEDS: NALBUPHINE HCL 10 MG/1ml INJECTION IV PRN (19:59)
[2025-02-28] MEDS ORDERED: ACETAMINOPHEN 325 MG TAB PO PRN (20:00)
[2025-02-28] MEDS: IBUPROFEN 600 MG TAB PO ONE (20:34)
[2025-02-28] MEDS ORDERED: ONDANSETRON HCL 4 MG/2 ML VIAL IV PRN (21:45)
[2025-02-28] MEDS ORDERED: DOCUSATE SOD 100 MG CAP PO SCH (22:00)
[2025-02-28] MEDS ORDERED: ONDANSETRON HCL 4 MG/2 ML VIAL ONE (22:50)
[2025-02-28 23:00] VITALS: BP 109/70; PULSE 90; RESP 16; TEMP 98.5; O2SAT 99
[2025-03-01 03:00] VITALS: BP 102/66; PULSE 88; RESP 17; TEMP 98.1; O2SAT 99
--- NOTE | 2025-03-01 06:09 | DVHDS2 ---
Discharge Summary Date of Admission Feb 27, 2025 at 19:25 Date of Discharge: Mar 01, 2025 Admitting Diagnosis labor Labs/Diagnostic Data: Laboratory Results Test 02/28/25 14:30 02/27/25 19:43 02/27/25 19:07 POC Glucose 71 mg/dl (70-106) White Blood Count 5.5 10^3/uL (4.4-10.8) Red Blood Count 4.41 10^6/uL (4.0-5.20) Hemoglobin 12.9 g/dL (12.2-16.2) Hematocrit 38.0 % (36.0-46.0) Mean Corpuscular Volume 86.2 fL (80.0-100.0) Mean Corpuscular Hemoglobin 29.3 pg (28.0-32.0) Mean Corpuscular Hemoglobin Concent 34.0 g/dL (32.0-36.0) Red Cell Distribution Width 15.2 % (11.8-14.3) Platelet Count 232 10^3/uL (140-450) Mean Platelet Volume 9.1 fL (6.9-10.8) Neutrophils (%) (Auto) 68.0 % (37.0-80.0) Lymphocytes (%) (Auto) 23.4 % (10.0-50.0) Monocytes (%) (Auto) 7.7 % (0.0-12.0) Eosinophils (%) (Auto) 0.6 % (0.0-7.0) Basophils (%) (Auto) 0.3 % (0.0-2.0) Neutrophils # (Auto) 3.7 10 ^3/uL (1.6-8.6) Lymphocytes # (Auto) 1.3 10 ^3/uL (0.4-5.4) Monocytes # (Auto) 0.4 10 ^3/uL (0-1.3) Eosinophils # (Auto) 0 10 ^3/uL (0-0.8) Basophils # (Auto) 0 10 ^3/uL (0-0.2) Nucleated Red Blood Cells 0.0 % Prothrombin Time 10.0 sec (9.3-11.8) Prothrombin Time INR 0.94 (0.9-1.15) Activated Partial Thromboplast Time 25.9 SEC (24.5-34.5) Sodium Level 141 mmol/L (136-145) Potassium Level 3.5 mmol/L (3.5-5.1) Chloride Level 109 mmol/L (98-107) Carbon Dioxide Level 21 mmol/L (20-31) Anion Gap 11 (5-15) Blood Urea Nitrogen 11 mg/dL (9-23) Creatinine 0.65 mg/dL (0.550-1.02) Glomerular Filtration Rate Calc 126 mL/min (>90) BUN/Creatinine Ratio 16.9 (10.0-20.0) Serum Glucose 92 mg/dL (74-106) Calcium Level 9.2 mg/dL (8.7-10.4) Total Bilirubin 0.3 mg/dL (0.2-1.0) Aspartate Amino Transferase (AST) 40 U/L (13-40) Alanine Aminotransferase (ALT) 77 U/L (7-40) Alkaline Phosphatase 147 U/L (46-116) Total Protein 6.7 g/dL (5.7-8.2) Albumin 3.9 g/dL (3.2-4.8) Treponema pallidum Antibody Non-reactive (Negative) Hepatitis C Antibody Negative (Negative) Urine Color Colorless (Yellow) Urine Clarity Clear (Clear) Urine pH 6.0 (5.0-9.0) Urine Specific [place] 1.009 (1.001-1.035) Urine Protein Negative (Negative) Urine Ketones Trace (Negative) Urine Blood Negative /uL (Negative) Urine Nitrite Negative (Negative) Urine Bilirubin Negative (Negative) Urine Urobilinogen Normal mg/dL (Negative) Urine Leukocyte Esterase Negative /uL (Negative) Urine RBC None seen /hpf (0 - 4) Urine Microscopic WBC < 1 /HPF (0-5) Urine Squamous Epithelial Cells Few /hpf (<5) Urine Bacteria Few /hpf (None Seen) Urine Glucose Normal mg/dL (Normal) Urine Opiates Screen Neg (NEGATIVE) Urine Fentanyl Screen Neg (NEGATIVE) Urine Barbiturates Screen Neg (NEGATIVE) Urine Phencyclidine Screen Neg (NEGATIVE) Urine Amphetamines Screen Neg (NEGATIVE) Urine Benzodiazepines Screen Neg (NEGATIVE) Urine Cocaine Screen Neg (NEGATIVE) Urine Cannabinoids Screen Neg (NEGATIVE) Other Laboratory Tests 02/27/25 19:43 Brief Hx & Hospital Course: Patient had spontaneous rupture membranes progressed to and delivered male with vacuum assist for 1 contraction Operations or Procedures Vacuum delivery no surgery Condition at Discharge: Good Final Diagnosis/Problems List Vaginal delivery first-degree vaginal tears no issues Discharge Disposition: Home Discharge Instruct/Medications Diet: Regular Activity: Light activity (Pelvic rest 6 weeks) Follow Up/Referral: OB 2 weeks or p.r.n. Scheduled Metformin Hydrochloride (Metformin Hcl), 500 MG PO DAILY, (Reported) Miscellaneous Medications Insulin Glargine (Basaglar Kwikpen), 100 UNIT SC, (Reported) Vit W/ Ferrous Fumara (Pnv Plus Multivi), 1 OR, (Reported) Discharge Statement: "Patient was advised to return to the ER or call 911 if any headaches, dizziness, shortness of breath, chest pain, abdominal pain, bleeding, fevers, or worsening of medical condition. Patient was counseled about treatment plan, medications, possible side effects, patientverbalized understanding. All questions were answered to the best of my ability. This discharge took greater then 30 minutes in planning, reviewing documentation, counseling the patient, and discussing with other team members." ASSESSMENT ASSESSMENT Assessment Visit Coding OBGYN Date of Service: Mar 01, 2025 Billing Provider: STEVE NARAYANAN DO WAXING MACHINE OPERATOR Common Visit Codes: [id number] INP/OBS CARE(HIGH) WAXING MACHINE OPERATOR Procedure Codes: [id number] OB CARE,VAG DELIVERY STEVE NARAYANAN DO Mar 01, 2025 06:09
[2025-03-01] MEDS: IBUPROFEN 600 MG TAB PO PRN (06:16)
--- NOTE | 2025-03-01 06:17 | LDN2 ---
Labor and Delivery Note Date 03/01/25 Age 24 1 Para 0 AB 0 EDC 37+ EGA 37+ Diagnosis labor Vaginal Delivery: VTX Vacuum Assisted: Yes (VAC placed for 1 contraction at 3+ station fingertip pressure helping the vertex rotate and essentially delivered spontaneously. She had bilateral first-degree and posterior vaginal tears which were repaired with 2-0 chromic) Placenta: Spontaneous Sex: Male Weight pnd Apgars pnd Nuchal Cord Transected: No Amniotic Fluid: Clear Anesthesia Epidural excellent Episiotomy: No Extension: Yes Repaired with 2-0 chromic EBL 800cc post Labs Laboratory Tests 09/03/24 10:00: Hepatitis B Surface Antigen Negative, HIV (1&2) Antibody Negative, Rubella Antibody Equivocal Blood Bank 02/27/25 19:43: Blood Type A POSITIVE Complications none Conditions stable Wallpaper Installer none present Comments/Significant Med Ariel Patient had hemorrhage due to uterine atony she had no retained POCs on exam patient responded to uterine massage to TBX and Methergine. Visit Coding OBGYN Date of Service: Mar 01, 2025 Billing Provider: STEVE NARAYANAN DO SUPERVISOR DOCK Common Visit Codes: 53458-MIQ/OBS SAME DATE (LOW), 92512-IEP/OBS SAME DATE (MOD), 54706-FRN/OBS SAME DATE (HIGH) SUPERVISOR DOCK Procedure Codes: [id number] OB CARE,VAG DELIVERY STEVE NARAYANAN DO Mar 01, 2025 06:17
[2025-03-01 07:10] VITALS: BP 113/58; PULSE 90; RESP 16; TEMP 97.9; O2SAT 98
[2025-03-01] MEDS ORDERED: TRANEXAMIC ACID 1,000 mg/10ml INJ VIAL IV ONE (10:29)
[2025-03-01 15:20] VITALS: BP 109/65; PULSE 84; RESP 16; TEMP 97.6; O2SAT 97
[2025-03-01 18:30] VITALS: BP 120/74; PULSE 90; RESP 18; TEMP 98.5; O2SAT 100
[2025-03-01] MEDS: MEASLES, MUMPS & RUBELLA VAC(MMRII) 0.5ML SC ONE (20:19)
== END 2025-03-01 20:38 | disposition home or self-care (01) | DRG 560 ==
LOC: LDRP 19:07 → UNDOADMOB 19:07 → INTOOBSV 19:25 → LDRP 19:25 → OBSVTOIN 19:25
PROVIDERS: ADMIT Obstetrics & Gynecology; ATTEND Obstetrics & Gynecology
PROC: 0HQ9XZZ Repair Perineum Skin, External Approach (ICD-10-PCS; principal; 2025-03-01)
PROC: 10D07Z6 Extraction of Products of Conception, Vacuum, Via Natural or Artificial Opening (ICD-10-PCS; 2025-03-01)
PROC: 3E0DXGC Introduction of Other Therapeutic Substance into Mouth and Pharynx, External Approach (ICD-10-PCS; 2025-03-01)
PROC: 3E0R3BZ Introduction of Anesthetic Agent into Spinal Canal, Percutaneous Approach (ICD-10-PCS; 2025-03-01)
PROC: 00HU33Z Insertion of Infusion Device into Spinal Canal, Percutaneous Approach (ICD-10-PCS; 2025-03-01)
DX: O42.92 Full-term premature rupture of membranes, unspecified as to length of time between rupture and onset of labor (principal); Z37.0 Single live birth; O72.1 Other immediate postpartum hemorrhage; O24.424 Gestational diabetes mellitus in childbirth, insulin controlled; Z3A.37 37 weeks gestation of pregnancy; O70.0 First degree perineal laceration during delivery
CPT/HCPCS: 36415; 59025; 59409; 62282; 76805; 80053; 80307; 81001; 81002; 82948; 82962; 85025; 85610; 85730; 86780; 86803; 86850; 86900; 86901; 94760; 94762; 96360; 96361; 96365; 96366; 96372; G0378; J2405; J2540; J2590; J7060